=== PATIENT | female | born 1980 | race Hispanic/Latino ===

== ENCOUNTER → 2024-02-20 | Outpatient (CLI) | payer BC | END | disposition home or self-care (01) | LOC: RAH 12:56 | PROVIDERS: ATTEND Family Medicine | DX: Z12.31 Encounter for screening mammogram for malignant neoplasm of breast (principal) | CPT/HCPCS: 77067 ==

== ENCOUNTER → 2024-03-11 | Outpatient (CLI) | payer BC ==
--- NOTE | 2024-03-12 08:49 | HMCIMG ---
Exam: Left breast diagnostic mammogram and left breast ultrasound. HISTORY: ABN MAMMOGRAM COMPARISON: 02/20/2024 TECHNIQUE: Bilateral digital diagnostic mammogram was performed. No additional views were obtained. FINDINGS: Parenchymal density: There are scattered areas of fibroglandular density. Repeat CC view shows near complete resolution of the asymmetric density. The left breast appears otherwise unremarkable. Spot views show no underlying focal lesion. There are no abnormal calcifications. Left breast ultrasound was performed. There is normal-appearing parenchyma. There are no focal masses. There are no cysts. There is no architectural distortion or acoustical shadowing. There are some normal-appearing lymph nodes in the axilla. IMPRESSION: 1. Unremarkable left breast diagnostic mammogram and ultrasound. 2. The asymmetric density seen on the CC view left breast resolves with repeat views as well as spot compression views, this area is negative by ultrasound. 3. Recommend routine screening mammographic follow-up, next bilateral exam due February 17. The patient was entered into a reminder system with a target due date for their next mammogram. BI-RADS CATEGORY 1: NEGATIVE Recommend monthly self breast exam as well as annual clinical examination. A negative x-ray should not delay biopsy if a dominant or clinically suspicious mass is present, since 8-10% of cancers are not identified by mammography. Dense breasts particularly, may obscure an underlying neoplasm. Some of these may be detected clinically and therefore, clinical examination is an essential part of breast evaluation.
== END | disposition home or self-care (01) ==
LOC: RAH 13:51
PROVIDERS: ATTEND Family Medicine
DX: R92.322 Mammographic fibroglandular density, left breast (principal); N64.89 Other specified disorders of breast
CPT/HCPCS: 76641; 77065